=== PATIENT | female | born 1970 | race Hispanic/Latino ===

== ENCOUNTER → 2017-11-27 | Outpatient (CLI) | payer MEDICAID ==
[~2017-11-27] MED LIST: ESOM20CA34 PO; LISI1TAB9 PO
== END | disposition home or self-care (01) ==
LOC: SHCH 09:20
PROVIDERS: ATTEND Internal Medicine Cardiovascular Disease
DX: I10 Essential (primary) hypertension (principal)
CPT/HCPCS: 93306

== ENCOUNTER → 2017-12-30 | Outpatient (CLI) | payer MEDICAID | END | disposition home or self-care (01) | LOC: SLP 20:04 | PROVIDERS: ATTEND Internal Medicine Cardiovascular Disease | DX: G47.30 Sleep apnea, unspecified (principal); I10 Essential (primary) hypertension; F41.9 Anxiety disorder, unspecified; E66.9 Obesity, unspecified | CPT/HCPCS: 95810 ==